=== PATIENT | female | born 1965 | race Caucasian/White ===

== ENCOUNTER 2016-11-06 19:44 | Inpatient (IN) | payer BC ==
--- NOTE | ~2016-11-06 | HP ---
History And Physical [address] [place]. [address] NAME: ADELE FRANKLIN : 61 STATUS : DIS IN PAT#: [id number] AGE: 51 ADM/REG DATE : 11/06/16 MR#: [id number] REPORT SERV DATE: 11/13/16 DICTATED BY: JAYCE FERRERA DATE: 11/07/16 REPORT STATUS : Draft TRANSCRIBED BY: TOMMY DATE: 11/07/16 DATE OF ADMISSION: 11/06/2016 [facility] PHYSICIAN: Dr. Jaramillo. CHIEF COMPLAINT: Chest pain. HISTORY OF PRESENT ILLNESS: Ms. Franklin is a 51-year-old woman with a history of coronary artery disease, who was previously seen and followed and treated by Dr. Ceballos. She has had some recurrent problems with chest tightness and pressure over the past week, which was concerning for her. Her blood pressure was up. She did not contact anyone recently regarding it. She went to [facility] and Dr. Jaramillo was contacted, who recommended transfer here. She is currently pain free. Chest pain is occurred both with rest and with exertion. It is similar to previous anginal type pain. She has no palpitations or lightheadedness. She has had occasional problems with nausea and diarrhea, which she has attributed to metformin. REVIEW OF SYSTEMS: The review of systems is as per the history of present illness. 10 other systems are negative. PAST MEDICAL HISTORY: 1. Paroxysmal atrial fibrillation, on chronic anticoagulation. 2. Coronary artery disease. She reports five stents in the past in the last one and a half years ago. 3. History of pacemaker placement. 4. Diabetes. 5. Asthma. 6. Reflux. FAMILY HISTORY: Noncontributory. SOCIAL HISTORY: Positive tobacco. Occasional alcohol. ALLERGIES: SOAP, MOXIFLOXACIN, OXYCODONE. HOME MEDICATIONS: ProAir, Coreg 25 mg p.o. b.i.d., Neurontin 300 at bedtime, Claritin 10 at bedtime, Zoloft 75 at bedtime, Topamax 100 at bedtime, Diovan unknown dose daily, Dulera, Jantoven as directed. PHYSICAL EXAMINATION: VITAL SIGNS: Heart rate 73, blood pressure 134/74. GENERAL: Pleasant, obese white female, in no apparent distress. HEENT: Conjunctivae are anicteric, no xanthelasma, lips without cyanosis. NECK: Supple, normal JVP, carotids +2 without bruit. LUNGS: Clear to auscultation bilaterally, no wheezes, rales or rhonchi. History And Physical [address] [place]. [address] NAME: ADELE FRANKLIN : 61 STATUS : DIS IN PAT#: [id number] AGE: 51 ADM/REG DATE : 11/06/16 MR#: [id number] REPORT SERV DATE: 11/13/16 DICTATED BY: JAYCE FERRERA DATE: 11/07/16 REPORT STATUS : Draft TRANSCRIBED BY: MODL DATE: 11/07/16 CARDIOVASCULAR: Regular rate and rhythm. Normal S1 and S2 without S3. No murmur or rub. PMI is nondisplaced. ABDOMEN: Soft, nontender, nondistended, with normal bowel sounds. No hepatomegaly. EXTREMITIES: No clubbing, cyanosis or edema. NEURO/PSYCH: Alert and oriented to person, place and time. No obvious neurologic deficits. Mood and affect normal. DATA: Electrocardiogram shows sinus rhythm with no diagnostic ST-T wave changes. Initial labs were negative troponin. Creatinine of 0.81, hematocrit 37.4. IMPRESSION: 1. Recurrent chest pain over the past several weeks. 2. Coronary artery disease with reported five stents in the past, all by Dr. Ceballos, I believe, at [facility]. 3. Atrial fibrillation, paroxysmal by history. Currently on anticoagulation. 4. History of pacemaker placement. 5. Diabetes. 6. Asthma. 7. Reflux. RECOMMENDATIONS: Ms. Franklin has a complicated coronary past with numerous stents. She is obese. I think a stress test has a high likelihood for potential false abnormal test, and given her history, I have recommended consideration of arteriography. I have discussed this with her, who will get this scheduled for Wednesday. I will hold her anticoagulation, check an INR, but potentially get her scheduled for an arteriogram on Wednesday. WO/MODL Jayce Ferrera M.D., Ph.D, F.A.C.C. / [id number] CC: Юлия Mullen M.D.
--- NOTE | ~2016-11-06 | DS ---
Discharge Summary [facility] [address] [facility] [place]. [address] NAME: ADELE BERKOWITZ : 61 STATUS : DIS IN PAT#: [id number] AGE: 51 ADM/REG DATE : 11/06/16 MR#: [id number] REPORT SERV DATE: 11/17/16 DICTATED BY: OLIVER CORREIA DATE: 11/16/16 REPORT STATUS : Draft TRANSCRIBED BY: TOMMY DATE: 11/16/16 Data Collection from hospitalization DISCHARGE DIAGNOSIS(ES): 1. Chest pain. 2. Coronary artery disease. 3. Atrial fibrillation. 4. Diabetes mellitus type 2. 5. Asthma and allergic rhinitis. 6. Gastroesophageal reflux disease. CONSULTATIONS: Joaquin Wallis NP PROCEDURES PERFORMED: Cardiac catheterization, 11/09/2016. MEDICATIONS: Aspirin 81 mg daily, Lipitor 40 mg at bedtime, Mevacor 40 mg at bedtime, Coreg 12.5 mg twice daily, Neurontin 300 mg twice daily, NovoLog insulin 6 units before meals, Zoloft 75 mg at bedtime, Topamax 100 mg at bedtime, Diovan 160 mg daily, Jantoven 8 mg at bedtime, Claritin 1 mg at bedtime as needed, Dulera two puffs every evening, ProAir two puffs four times daily as needed, and Levemir 24 units at bedtime. CONDITION AT DISCHARGE: Upon discharge, she did appear to be doing well and had no complaints. DISPOSITION: She was discharged home to continue a 4 g sodium, low cholesterol, 1800-calorie ADA cardiac diet with activity as discussed. She was to follow up with Dr. Vasquez Jaramillo in two to three weeks. Follow up with Dr. Inocencia Hoffman in one week. Follow up with the [facility] on 11/13/2016. HOSPITAL COURSE: This 51-year-old female had a history of coronary artery disease. She was previously seen and treated by Dr. Ceballos. She had had some recurrent problems with chest tightness and pressure over the past week prior to admission which was concerning for her. Her blood pressure was up. She did not contact anyone recently regarding this. She went to [facility] and Dr. Jaramillo was contacted. He had recommended transfer here. She was currently pain free. Chest pain occurred both with rest and with exertion. It was similar to previous anginal type pain. She had no palpitations or lightheadedness. She had had occasional problems with nausea and diarrhea, which she had attributed to metformin. She was admitted for further evaluation and treatment. Upon admission to the hospital, she had been placed on level 1 sliding scale insulin. She was placed on a nicotine patch at 14 mg. She was begun on an 1800-calorie ADA cardiac diet, was to be n.p.o. after midnight. She was admitted to telemetry. Following the day of admission, she did appear to be doing well and had no further chest pain noted. Cardiac catheterization was discussed with the patient. She was agreeable to proceed. On 11/08/2016, she was noted to have had some mild chest tightness that increased with ambulating. Her INR was at 1.7. Troponin was less than 0.02. Her lungs had revealed some mild wheezing. She was continued on her current medications. She had also been seen by Ranjan Wallis for medical management, and her hemoglobin A1c was to be checked. She was to continue with sliding scale insulin on 11/09/2016, but it was noted her hemoglobin A1c was at 9.9. She did undergo the above cardiac catheterization. Discharge Summary [id number] [place]. [address] NAME: ADELE BERKOWITZ : 61 STATUS : DIS IN [facility]#: [id number] AGE: 51 ADM/REG DATE : 11/06/16 MR#: [id number] REPORT SERV DATE: 11/17/16 DICTATED BY: OLIVER CORREIA DATE: 11/16/16 REPORT STATUS : Draft TRANSCRIBED BY: MODSalty DATE: 11/16/16 She had tolerated this well and was transferred to the recovery room. She did undergo diabetic education. She did remain in stable condition and was then discharged with the above instructions. Information collected by: Cristal Palmer. I submit the above information as my discharge summary. RW/TOMMY Nevin Correia M.D. / [id number] CC: Nevin Correia M.D. Inocencia Hoffman M.D.
[2016-11-06] MEDS ORDERED: TOPAMAX100 PO (21:32)
[2016-11-06] MEDS ORDERED: NEUR300 PO (21:32)
[2016-11-06] MEDS ORDERED: DIOV160 PO (21:33)
[2016-11-06] MEDS ORDERED: ZOL50 PO (21:33)
[2016-11-06] MEDS ORDERED: JANTOVEN4 MG PO (21:33)
[2016-11-06] MEDS ORDERED: COREG12 PO (21:40)
[2016-11-06] MEDS ORDERED: CLARIT10 PO (21:41)
[2016-11-06] MEDS ORDERED: PROAIR HFA INH (21:42)
[2016-11-06] MEDS ORDERED: DULERA INHALER INH (21:42)
[2016-11-06 22:56] LABS: CPK 51 U/L (0-200); TROPONIN I <0.02 NG/ML (<0.05)
[2016-11-06 22:57] LABS: CK-MB 0.9 NG/ML
[2016-11-07 03:27] LABS: BASOPHILS 0.2 %; BASOPHILS ABSOLUTE 0.01 10/3/uL (0.0-0.16); EOSINOPHILS 1.9 %; EOSINOPHILS ABSOLUTE 0.09 10/3/uL (0.0-0.53); HEMATOCRIT 37.4 % (36.0-48.0); IMMATURE GRANULOCYTES 0.2 %; IMMATURE GRANULOCYTES ABSOLUTE 0.01 10/3/uL (0.0-0.11); LYMPHOCYTES 39.5 %; LYMPHOCYTES ABSOLUTE 1.83 10/3/uL (0.67-4.30); MEAN CORPUS HGB CONC 32.1 g/dL (32.0-36.0); MEAN CORPUSCULAR HEMOGLOB 26.5 pg (26.0-34.0); MEAN CORPUSCULAR VOLUME 82.7 fL (80-100); MONOCYTES 6.7 %; MONOCYTES ABSOLUTE 0.31 10/3/uL (0.21-1.20); NEUTROPHILS 51.5 %; NEUTROPHILS ABSOLUTE 2.38 10/3/uL (2.02-8.40); PLATELET COUNT 111 10/3/uL (150-400); RBC DISTRIBUTION WIDTH 13.6 % (12.0-16.0); RED CELL COUNT 4.52 10/6/uL (4.0-5.6); WHITE BLOOD CELLS 4.6 10/3/uL (4.5-10.5)
[2016-11-07 03:32] LABS: MANUAL DIFF NO %
[2016-11-07 03:41] LABS: BUN (BLOOD UREA NITROGEN) 13 MG/DL (6-23); CALCIUM, SERUM 8.4 MG/DL (8.5-10.4); CHLORIDE, SERUM 109 MMOL/L (96-112); CO2 (CARBON DIOXIDE) 29 MMOL/L (24-34); CPK 46 U/L (0-200); CREATININE 0.81 MG/DL (0.55-1.02); GFR AFRICAN AMERICAN 96 ML/MIN (>=60); GFR NON AFRICAN AMERICAN 83 ML/MIN (>=60); GLUCOSE, SERUM 176 MG/DL (60-99); POTASSIUM, SERUM 3.9 MMOL/L (3.5-5.3); SODIUM, SERUM 142 MMOL/L (135-148); TROPONIN I <0.02 NG/ML (<0.05)
[2016-11-07 03:44] LABS: CK-MB 0.9 NG/ML
[2016-11-07 11:15] LABS: CPK 43 U/L (0-200); TROPONIN I <0.02 NG/ML (<0.05)
[2016-11-07 11:17] LABS: CK-MB 0.6 NG/ML
[2016-11-08 04:34] LABS: BASOPHILS 0.2 %; BASOPHILS ABSOLUTE 0.01 10/3/uL (0.0-0.16); EOSINOPHILS 2.3 %; HEMOGLOBIN 12.4 g/dL (12.0-16.0); IMMATURE GRANULOCYTES 0.2 %; IMMATURE GRANULOCYTES ABSOLUTE 0.01 10/3/uL (0.0-0.11); LYMPHOCYTES 43.1 %; LYMPHOCYTES ABSOLUTE 1.86 10/3/uL (0.67-4.30); MEAN CORPUS HGB CONC 31.8 g/dL (32.0-36.0); MEAN CORPUSCULAR HEMOGLOB 26.1 pg (26.0-34.0); MEAN CORPUSCULAR VOLUME 81.9 fL (80-100); MEAN PLATELET VOLUME 12.3 fL (9.2-13.0); MONOCYTES 5.6 %; MONOCYTES ABSOLUTE 0.24 10/3/uL (0.21-1.20); NEUTROPHILS 48.6 %; PLATELET COUNT 125 10/3/uL (150-400); RBC DISTRIBUTION WIDTH 13.6 % (12.0-16.0); RED CELL COUNT 4.76 10/6/uL (4.0-5.6); WHITE BLOOD CELLS 4.3 10/3/uL (4.5-10.5)
[2016-11-08 04:36] LABS: MANUAL DIFF NO %
[2016-11-08 04:39] LABS: INTERNATIONAL NORMAL RATI 1.7 UNITS (-); PROTIME (NOT ORD) 19.6 SEC (12.0-14.5)
[2016-11-08 04:54] LABS: BUN (BLOOD UREA NITROGEN) 14 MG/DL (6-23); CALCIUM, SERUM 8.9 MG/DL (8.5-10.4); CHLORIDE, SERUM 109 MMOL/L (96-112); CHOL/HDL RATIO(NOT ORDER) 7.5 (0-5); CHOLESTEROL 203 MG/DL (< 200); CO2 (CARBON DIOXIDE) 26 MMOL/L (24-34); CREATININE 0.73 MG/DL (0.55-1.02); GFR AFRICAN AMERICAN 109 ML/MIN (>=60); GFR NON AFRICAN AMERICAN 94 ML/MIN (>=60); GLUCOSE, SERUM 172 MG/DL (60-99); HDL CHOLESTEROL 27 MG/DL (> 49); LDL CHOLESTEROL 141 MG/DL (< 130); NON-HDL CHOLESTEROL 176 MG/DL (< 160); POTASSIUM, SERUM 4.1 MMOL/L (3.5-5.3); SODIUM, SERUM 143 MMOL/L (135-148); TRIGLYCERIDE 177 MG/DL (< 150); TROPONIN I <0.02 NG/ML (<0.05)
[2016-11-08 12:45] LABS: A/G RATIO 1.1 (0.7-1.9); ALBUMIN 3.4 G/DL (3.5-5.0); ALKALINE PHOSPHATASE 92 U/L (45-117); BUN (BLOOD UREA NITROGEN) 15 MG/DL (6-23); CALCIUM, SERUM 9.1 MG/DL (8.5-10.4); CHLORIDE, SERUM 106 MMOL/L (96-112); CO2 (CARBON DIOXIDE) 27 MMOL/L (24-34); CREATININE 0.77 MG/DL (0.55-1.02); GFR AFRICAN AMERICAN 102 ML/MIN (>=60); GFR NON AFRICAN AMERICAN 88 ML/MIN (>=60); GLOBULIN 3.2 G/DL (2.5-4.1); POTASSIUM, SERUM 4.4 MMOL/L (3.5-5.3); SGOT(AST) 12 U/L (5-40); SGPT(ALT) 21 U/L (5-65); SODIUM, SERUM 139 MMOL/L (135-148); TOTAL BILIRUBIN 0.9 MG/DL (0-1.2); TOTAL PROTEIN 6.6 G/DL (6.0-8.5); ULTRASENSITIVE TSH 0.302 MCIU/ML (0.358-3.740)
[2016-11-08 12:46] LABS: GLUCOSE, SERUM 276 MG/DL (60-99)
[2016-11-08] MEDS ORDERED: GLUCPH PO (16:36)
[2016-11-08] MEDS ORDERED: AMARYL2 PO (16:37)
[2016-11-08] MEDS ORDERED: MEVACOR40 MG PO (16:39)
[2016-11-09 06:48] LABS: INTERNATIONAL NORMAL RATI 1.3 UNITS (-)
[2016-11-09 06:52] LABS: CALCIUM, SERUM 9.1 MG/DL (8.5-10.4); CHLORIDE, SERUM 107 MMOL/L (96-112); CO2 (CARBON DIOXIDE) 27 MMOL/L (24-34); CREATININE 0.98 MG/DL (0.55-1.02); GFR AFRICAN AMERICAN 76 ML/MIN (>=60); GFR NON AFRICAN AMERICAN 66 ML/MIN (>=60); POTASSIUM, SERUM 4.2 MMOL/L (3.5-5.3); SODIUM, SERUM 142 MMOL/L (135-148)
[2016-11-09 06:53] LABS: BUN (BLOOD UREA NITROGEN) 21 MG/DL (6-23); GLUCOSE, SERUM 169 MG/DL (60-99)
[2016-11-09 06:56] LABS: PROTIME (NOT ORD) 16.3 SEC (12.0-14.5)
[2016-11-09 06:58] LABS: BASOPHILS 0.2 %; BASOPHILS ABSOLUTE 0.01 10/3/uL (0.0-0.16); EOSINOPHILS 1.4 %; EOSINOPHILS ABSOLUTE 0.08 10/3/uL (0.0-0.53); HEMATOCRIT 41.2 % (36.0-48.0); HEMOGLOBIN 13.5 g/dL (12.0-16.0); IMMATURE GRANULOCYTES 0.2 %; IMMATURE GRANULOCYTES ABSOLUTE 0.01 10/3/uL (0.0-0.11); LYMPHOCYTES 35.6 %; LYMPHOCYTES ABSOLUTE 2.04 10/3/uL (0.67-4.30); MANUAL DIFF NO %; MEAN CORPUS HGB CONC 32.8 g/dL (32.0-36.0); MEAN CORPUSCULAR HEMOGLOB 26.8 pg (26.0-34.0); MEAN CORPUSCULAR VOLUME 81.9 fL (80-100); MEAN PLATELET VOLUME 11.6 fL (9.2-13.0); MONOCYTES 6.8 %; MONOCYTES ABSOLUTE 0.39 10/3/uL (0.21-1.20); NEUTROPHILS 55.8 %; PLATELET COUNT 123 10/3/uL (150-400); RBC DISTRIBUTION WIDTH 13.4 % (12.0-16.0); RED CELL COUNT 5.03 10/6/uL (4.0-5.6); WHITE BLOOD CELLS 5.7 10/3/uL (4.5-10.5)
[2016-11-09] MEDS ORDERED: NOVOPEN SC (18:43)
[2016-11-09] MEDS ORDERED: LEVEMFLXPN SC (18:43)
== END 2016-11-09 21:12 | disposition home or self-care (01) | DRG 287 ==
LOC: 5NO 19:44
PROVIDERS: Internal Medicine Cardiovascular Disease; Nurse Practitioner Family
PROC: 4A023N7 Measurement of Cardiac Sampling and Pressure, Left Heart, Percutaneous Approach (ICD-10-PCS; principal; 2016-11-09)
PROC: B2111ZZ Fluoroscopy of Multiple Coronary Arteries using Low Osmolar Contrast (ICD-10-PCS; 2016-11-09)
PROC: B2151ZZ Fluoroscopy of Left Heart using Low Osmolar Contrast (ICD-10-PCS; 2016-11-09)
DX: I25.10 Atherosclerotic heart disease of native coronary artery without angina pectoris (principal); I48.0 Paroxysmal atrial fibrillation; Z79.84 Long term (current) use of oral hypoglycemic drugs; Z79.01 Long term (current) use of anticoagulants; Z95.0 Presence of cardiac pacemaker; J45.909 Unspecified asthma, uncomplicated; Z95.5 Presence of coronary angioplasty implant and graft; E11.9 Type 2 diabetes mellitus without complications; E66.9 Obesity, unspecified; Z68.38 Body mass index [BMI] 38.0-38.9, adult; F17.210 Nicotine dependence, cigarettes, uncomplicated
CPT/HCPCS: 80048; 80053; 80061; 82550; 82553; 82962; 83036; 84443; 84484; 84703; 85025; 85610; 93005; 93458; 94640; 99152; 99153; A9270-GY; C1769; C1894; J2250; J3010; Q9967